=== PATIENT | male | born 1955 | race Caucasian/White ===

== ENCOUNTER 2022-02-07 14:28 | Inpatient (IN) | payer MEDICARE, OTHER ==
[~2022-02-07] VITALS: Ht 165.1 cm; Wt 72.6 kg
[2022-02-07] MEDS ORDERED: METO-295 PO (16:09)
[2022-02-07] MEDS ORDERED: PANT20TA2 PO (16:09)
[2022-02-07] MEDS ORDERED: MAGN400O6 PO (16:09)
[2022-02-07] MEDS ORDERED: LEVE500T9 PO (16:09)
[2022-02-07] MEDS ORDERED: LACT10SO3 PO (16:09)
[2022-02-07] MEDS ORDERED: ACET-2154 PO (16:09)
[2022-02-07] MEDS ORDERED: CHOL100062 PO (16:09)
[2022-02-07] MEDS ORDERED: BISA10SU61 RC (16:09)
[2022-02-07] MEDS ORDERED: CLON0.1T PO (16:09)
[2022-02-07] MEDS ORDERED: BLOO-697 IN (16:09)
[2022-02-07] MEDS ORDERED: GLUC1AUT IM (16:09)
[2022-02-07] MEDS ORDERED: LISI20TA PO (16:09)
[2022-02-07] MEDS ORDERED: LEVO100T PO (16:09)
[2022-02-07] MEDS ORDERED: MULT-594 PO (16:09)
[2022-02-07 16:15] LABS: HEMATOCRIT 45.1 % (36.7-47.1); MEAN CORPUSCULAR HEMOGLOBIN 30.8 uug (23.8-33.4); MEAN CORPUSCULAR VOLUME 90.8 fL (73.0-96.2); PLATELET COUNT (AUTO) 306 K/uL (152-348)
[2022-02-07] MEDS ORDERED: LORAZEPAM 2 MG/1 ML VIAL ONE (16:17)
[2022-02-07 16:20] LABS: CREATININE 0.9 mg/dL (0.6-1.3); POTASSIUM 3.7 mmol/L (3.5-5.1)
[2022-02-07] MEDS ORDERED: LORAZEPAM 0.5 MG TABLET PO ONE (16:30)
--- NOTE | 2022-02-07 16:40 | NUR ---
Pt came in from shelter per report. Pt was agitated and not like any female staff. Tried irrigating the current little with no success. Changed suprapubic cath with Fr. 16 and attached to a new bedside drainage bag. Urine sample sent to lab.
--- NOTE | 2022-02-07 17:06 | NUR ---
pt put out only 100 ml. made aware.
[2022-02-07 17:21] LABS: *BILIRUBIN,URIN NEGATIVE (NEGATIVE); *BLOOD, URINE 3+ (NEGATIVE); *CLARITY,URINE CLOUDY (CLEAR); *COLOR,URINE RED (YELLOW); *KETONES,URINE NEGATIVE (NEGATIVE); *UROBILINOGEN,URINE 0.2 E.U./dl (NORMAL); LEUKOCYTE ESTERASE ,URINE 3+ (NEGATIVE); NITRITE, URINE NEGATIVE (NEGATIVE); PH,URINE 6.5 (5.0-8.0); UGLUCOSE NEGATIVE (NEGATIVE)
[2022-02-07 17:29] LABS: BACTERIA,URINE MODERATE /HPF (NONE SEEN); RBC,URINE 80-100 /HPF (0-3); WBC,URINE 50-80 /HPF (0-3)
[2022-02-07 17:30] LABS: SQUAMOUS EPITHELIAL CELL,UR FEW /HPF (NONE SEEN)
[2022-02-07] MEDS ORDERED: CEFTRIAXONE 1 G in IV DEXTROSE 5% 50 ML IV ONE (17:45)
[2022-02-07] MEDS ORDERED: IV NS 1000 ML 1,000 ML IV ONE (18:00)
[2022-02-07] MEDS ORDERED: CLONIDINE HCL 0.1 MG TABLET PO PRN (18:00)
[2022-02-07] MEDS ORDERED: MORPHINE SULFATE 2 MG/1 ML DISP.SYRIN IV PRN (18:00)
[2022-02-07] MEDS ORDERED: hydrALAZINE HCL 20 MG/1 ML VIAL IV PRN (18:00)
[2022-02-07] MEDS ORDERED: MAGNESIUM HYDROXIDE 30 ML LIQUID UDC PO PRN (18:00)
[2022-02-07] MEDS ORDERED: ACETAMINOPHEN 325 MG TABLET PO PRN (18:00)
[2022-02-07] MEDS ORDERED: ONDANSETRON 4 MG/2 ML VIAL IV PRN (18:00)
[2022-02-07] MEDS ORDERED: INSULIN REGULAR, HUMAN 300 UNITS/3 ML VIAL SQ PRN (19:15)
[2022-02-07] MEDS ORDERED: DEXTROSE 50% 50 ML DISP.SYRIN IV PRN (19:15)
[2022-02-07] MEDS: METOCLOPRAMIDE HCL 5 MG TABLET PO SCH (21:00)
[2022-02-07] MEDS: BLOOD SUGAR DIAGNOSTIC 1 EACH STRIP VI SCH (21:00)
[2022-02-07] MEDS ORDERED: MEROPENEM 1 G in IV NORMAL SALINE 100 ML IV ONE (21:00)
[2022-02-08] MEDS: MEROPENEM 1 G in IV NORMAL SALINE 100 ML IV SCH ×3 (05:00→20:22)
[2022-02-08] MEDS: LEVOTHYROXINE SODIUM 100 MCG TABLET PO SCH (06:47)
[2022-02-08] MEDS: PANTOPRAZOLE SODIUM 40 MG TABLET.DR PO SCH (06:47)
--- NOTE | 2022-02-08 08:02 | NUR ---
SHIFT NOTE: PT IS ALERT WITH PERIOD OF CONFUSION BECAME COMBATIVE ATTEMPTING TO TAKE BLOOD SUGAR CALL DR FRYE HE OKAY SOFT WRIST RESTRAINTS PT WILL NOT LET YOU GIVE MEDICATION IV FLUIDS. PT HAS DX INSERTION OF CATHETHER SUPRA PUBIC. WHICH WAS DONE 02/07/22 PT HAS PT HX OF DM, HYPOTHYROIDISM,EPILEPSY,DIABETIC NEUROPATHY AND WILL ENDORSE TO AM NURSE. WILL CONTINUE TO MONITOR FOR SAFETY THROUGHOUT THE SHIFT.
[2022-02-08] MEDS: BLOOD SUGAR DIAGNOSTIC 1 EACH STRIP VI SCH ×4 (08:27→20:23)
[2022-02-08] MEDS: METOCLOPRAMIDE HCL 5 MG TABLET PO SCH ×2 (08:41→20:23)
[2022-02-08] MEDS: LISINOPRIL 20 MG TABLET PO SCH (08:41)
[2022-02-08] MEDS: DOCUSATE SODIUM 100 MG CAPSULE PO SCH ×2 (08:41→17:00)
[2022-02-08] MEDS: CHOLECALCIFEROL 1,000 UNIT TABLET PO SCH (08:41)
[2022-02-08] MEDS ORDERED: BISACODYL 10 MG SUPP.RECT RC PRN (09:00)
--- NOTE | 2022-02-08 09:00 | NUR ---
RECEIVED PT ON BED; SLEEPING CALMLY; NO ACUTE DISTRESS NOTED; NO SOB NOR PAIN NOTED; PT ON RESTRAIN PER NOC SHIFT RN PT IS AGITATED AND CONFUSED; PT HAVE RIGHT SIDED WEAKNESS. ON ROOM AIR SATURATING 97-98%; PT ATE 100% OF BREAKFAST AND TOOK PO MEDS ONLY; PT IS REFUSING IV MEDS. NOTIFIED.
[2022-02-08 12:00] VITALS: BP 120/91
[2022-02-08 16:00] VITALS: BP 114/61
[2022-02-08] MEDS: INSULIN REGULAR, HUMAN 300 UNIT/3 ML VIAL SQ PRN (17:34)
--- NOTE | 2022-02-08 18:54 | NUR ---
pt is combative when tending care. applied mitten restrain and soft wrist restraint. merrem 1st dose started. will endorsed to oncoming shift
[2022-02-08 20:00] VITALS: BP 103/46
[2022-02-08] MEDS: levETIRAcetam 500 MG TABLET PO SCH (20:21)
[2022-02-08] MEDS ORDERED: levETIRAcetam 500 MG TABLET PO SCH (21:00)
[2022-02-09 04:00] VITALS: BP 122/59
[2022-02-09] MEDS: MEROPENEM 1 G in IV NORMAL SALINE 100 ML IV SCH ×4 (05:00→21:45)
[2022-02-09] MEDS: LEVOTHYROXINE SODIUM 100 MCG TABLET PO SCH (06:27)
[2022-02-09] MEDS: BLOOD SUGAR DIAGNOSTIC 1 EACH STRIP VI SCH ×4 (06:27→21:00)
[2022-02-09] MEDS: PANTOPRAZOLE SODIUM 40 MG TABLET.DR PO SCH (06:27)
--- NOTE | 2022-02-09 08:07 | NUR ---
SHIFT NOTE; RECEIVED ALERT AND ORIENTED WHILE FAMILY MEM[facility]ERS WAS WITH PATIENT PT WAS GIVEN ANTIBIOTIC AND MEDICATION AT HS WHILE WAS HERE AFTERWARDS REFUSED MEDICATION, BLOOD DRAW, AND AM BLOOD SUGAR. WILL ENDORSE TO AM NURSE FALL AND SAFETY MAINTAINED NO SIGNS OF DISTRESS NOTED.
[2022-02-09] MEDS: CHOLECALCIFEROL 1,000 UNIT TABLET PO SCH (08:47)
[2022-02-09] MEDS: METOCLOPRAMIDE HCL 5 MG TABLET PO SCH ×2 (08:47→21:37)
[2022-02-09] MEDS: LISINOPRIL 20 MG TABLET PO SCH (08:47)
[2022-02-09] MEDS: DOCUSATE SODIUM 100 MG CAPSULE PO SCH ×2 (08:48→17:00)
[2022-02-09] MEDS: levETIRAcetam 500 MG TABLET PO SCH ×2 (08:48→17:00)
--- NOTE | 2022-02-09 11:30 | NUR ---
HOSTILE AND COMBATIVE. REFUSING ALL TREATMENTS AND MOST MEDS TODAY.
[2022-02-09 12:22] VITALS: BP 134/58
[2022-02-09 16:12] VITALS: BP 156/73
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
[2022-02-09] MEDS: LORAZEPAM 2 MG/1 ML VIAL IV PRN ×2 (16:29→21:45)
[2022-02-09 20:00] VITALS: BP 114/48
[2022-02-09] MEDS: INSULIN REGULAR, HUMAN 300 UNIT/3 ML VIAL SQ PRN (22:03)
[2022-02-10 04:00] VITALS: BP 136/72
[2022-02-10] MEDS: MEROPENEM 1 G in IV NORMAL SALINE 100 ML IV SCH ×2 (05:00→13:00)
[2022-02-10] MEDS: BLOOD SUGAR DIAGNOSTIC 1 EACH STRIP VI SCH ×2 (06:43→11:30)
[2022-02-10] MEDS: LEVOTHYROXINE SODIUM 100 MCG TABLET PO SCH (07:00)
[2022-02-10] MEDS: PANTOPRAZOLE SODIUM 40 MG TABLET.DR PO SCH (07:00)
--- NOTE | 2022-02-10 07:06 | NUR ---
pt am blood sugar is 118 and no signs of diabetic reaction noted but refused other medication and pulled out iv called Dr Melvin no response.
[2022-02-10 07:54] LABS: HEMATOCRIT 39.5 % (36.7-47.1); MEAN CORPUSCULAR HEMOGLOBIN 31.3 uug (23.8-33.4); MEAN CORPUSCULAR VOLUME 91.4 fL (73.0-96.2); PLATELET COUNT (AUTO) 291 K/uL (152-348)
[2022-02-10 07:59] LABS: PHOSPHOROUS 2.2 mg/dL (2.5-4.9); POTASSIUM 4.2 mmol/L (3.5-5.1); TOTAL PROTEIN, SERUM 7.2 g/dL (6.4-8.2)
[2022-02-10] MEDS: levETIRAcetam 500 MG TABLET PO SCH (09:00)
[2022-02-10] MEDS: DOCUSATE SODIUM 100 MG CAPSULE PO SCH (09:00)
[2022-02-10] MEDS: LISINOPRIL 20 MG TABLET PO SCH (09:00)
[2022-02-10] MEDS: METOCLOPRAMIDE HCL 5 MG TABLET PO SCH (09:00)
[2022-02-10] MEDS: CHOLECALCIFEROL 1,000 UNIT TABLET PO SCH (09:00)
--- NOTE | 2022-02-10 10:00 | NUR ---
Angry and hostile. Refusing meds and treatment.
[2022-02-10 12:00] VITALS: BP 110/59
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
--- NOTE | 2022-02-10 14:05 | NUR ---
DISCHARGED VIA [facility] TO AMBULANCE ATTENDANTS.
--- NOTE | 2022-02-10 14:16 | NUR ---
REPORT CALLED TO SINDI HENNESSY.
== END 2022-02-10 14:05 | DRG 699 ==
LOC: ER 14:28 → MEDSURG3 19:19
PROVIDERS: ADMIT Internal Medicine; ATTEND Internal Medicine
DX: T83.090A Other mechanical complication of cystostomy catheter, initial encounter (principal); N39.0 Urinary tract infection, site not specified; R31.9 Hematuria, unspecified; E03.9 Hypothyroidism, unspecified; F03.90 Unspecified dementia, unspecified severity, without behavioral disturbance, psychotic disturbance, mood disturbance, and anxiety; G40.909 Epilepsy, unspecified, not intractable, without status epilepticus; I10 Essential (primary) hypertension; J44.9 Chronic obstructive pulmonary disease, unspecified; R62.7 Adult failure to thrive; Z85.038 Personal history of other malignant neoplasm of large intestine; Z87.440 Personal history of urinary (tract) infections; Z93.3 Colostomy status; N13.9 Obstructive and reflux uropathy, unspecified; Z68.26 Body mass index [BMI] 26.0-26.9, adult; Y84.8 Other medical procedures as the cause of abnormal reaction of the patient, or of later complication, without mention of misadventure at the time of the procedure; E11.9 Type 2 diabetes mellitus without complications; Y73.8 Miscellaneous gastroenterology and urology devices associated with adverse incidents, not elsewhere classified; Y92.129 Unspecified place in nursing home as the place of occurrence of the external cause
CPT/HCPCS: 36415; 51702; 83735; 84100; 85025; 87086; A4663; G0378; J1815; J2060; J2185; J8597

== ENCOUNTER 2023-10-12 13:47 | Inpatient (IN) | payer MEDICARE, OTHER ==
[~2023-10-12] VITALS: Ht 172.7 cm; Wt 102.1 kg
[~2023-10-12 13:47] MED LIST: ACET-2154 PO; BISA10SU61 RC; CHOL100062 PO; CLON0.1T PO; LEVE500T9 PO; LEVO100T PO; LISI20TA PO; MULT-594 PO; PANT20TA2 PO
[2023-10-12] MEDS ORDERED: DOCU100C36 PO (14:12)
[2023-10-12] MEDS ORDERED: CYAN100T44 PO (14:12)
[2023-10-12] MEDS ORDERED: CHOL10005 PO (14:12)
[2023-10-12] MEDS ORDERED: POLY250017 PO (14:12)
[2023-10-12 14:34] LABS: BASOPHILS # (AUTO) 0.1 K/UL (0.0-0.2); EOSINOPHILS # (AUTO) 0.2 K/uL (0.0-0.7); EOSINOPHILS % (AUTO) 2.4 % (0.0-7.0); HEMATOCRIT 41.7 % (36.7-47.1); HEMOGLOBIN 14.4 g/dL (12.5-16.3); LYMPHOCYTES # (AUTO) 1.4 K/uL (0.8-4.8); LYMPHOCYTES % (AUTO) 14.9 % (20.5-51.5); MEAN CORPUSCULAR HEMOGLOBIN 34.7 uug (23.8-33.4); MEAN CORPUSCULAR HGB CONC 34 g/dL (32.5-36.3); MEAN CORPUSCULAR VOLUME 100.7 fL (73.0-96.2); NEUTROPHILS # (AUTO) 6.9 K/uL (1.8-8.9); NEUTROPHILS % (AUTO) 71.7 % (38.5-71.5); PLATELET COUNT (AUTO) 413 K/uL (152-348); RED BLOOD CELL COUNT(AUTO) 4.14 MIL/uL (4.06-5.63); RED CELL DISTRIBUTION WIDTH 17.4 % (12.1-16.2); WHITE BLOOD COUNT (AUTO) 9.6 K/uL (3.6-10.2)
[2023-10-12 14:49] LABS: DIFFERENTIAL COMMENT 1
[2023-10-12 14:52] LABS: CALCIUM 8.7 mg/dL (8.5-10.1); CREATININE 0.8 mg/dL (0.6-1.3); POTASSIUM 3.8 mmol/L (3.5-5.1)
[2023-10-12 14:58] LABS: ALBUMIN 3.1 g/dL (3.4-5.0); BILIRUBIN,DIRECT 0.2 mg/dL (0.0-0.2); C-REACTIVE PROTEIN 2.08 mg/dL (0.00-0.30); TOTAL PROTEIN, SERUM 8.2 g/dL (6.4-8.2)
[2023-10-12 15:14] LABS: *BILIRUBIN,URIN NEGATIVE (NEGATIVE); *BLOOD, URINE NEGATIVE (NEGATIVE); *CLARITY,URINE CLEAR (CLEAR); *COLOR,URINE YELLOW (YELLOW); *KETONES,URINE NEGATIVE (NEGATIVE); *PROTEIN,URINE NEGATIVE (NEGATIVE); *UROBILINOGEN,URINE 0.2 E.U./dl (NORMAL); LEUKOCYTE ESTERASE ,URINE 1+ (NEGATIVE); NITRITE, URINE NEGATIVE (NEGATIVE); UGLUCOSE NEGATIVE (NEGATIVE)
[2023-10-12 15:33] LABS: BACTERIA,URINE FEW /HPF (NONE SEEN); RBC,URINE NONE SEEN /HPF (0-3); SQUAMOUS EPITHELIAL CELL,UR FEW /HPF (NONE SEEN)
[2023-10-12] MEDS: CIPROFLOXACIN IV 400 MG in PREMIXED 1 EACH IV STA (15:46)
[2023-10-12] MEDS ORDERED: CLONIDINE HCL 0.2 MG TABLET ONE (17:04)
[2023-10-12] MEDS: CLONIDINE HCL 0.2 MG TABLET PO ONE (17:08)
[2023-10-12 18:44] VITALS: BP 177/89; TEMP 97.9; O2SAT 97
[2023-10-12] MEDS ORDERED: ACETAMINOPHEN 325 MG TABLET-SA PATIENTS-PAIN ONLY PO PRN (19:15)
[2023-10-12] MEDS ORDERED: CLONIDINE HCL 0.1 MG TABLET PO PRN (19:15)
[2023-10-12] MEDS ORDERED: TEMAZEPAM 15 MG CAPSULE PO PRN (19:30)
[2023-10-12] MEDS ORDERED: MEROPENEM 500 MG in IV NORMAL SALINE 50 ML IV SCH (19:30)
[2023-10-12] MEDS ORDERED: LORAZEPAM 2 MG/1 ML VIAL IV PRN (19:30)
[2023-10-12] MEDS ORDERED: ONDANSETRON 4 MG/2 ML VIAL IV PRN (19:30)
[2023-10-12] MEDS: levETIRAcetam 500 MG TABLET PO SCH (20:40)
[2023-10-12] MEDS: METOPROLOL TARTRATE 25 MG TABLET PO SCH (20:40)
[2023-10-12] MEDS ORDERED: MEROPENEM 1 G in IV NORMAL SALINE 100 ML IV SCH ×2 (21:00→22:00)
[2023-10-12 21:03] VITALS: BP 114/67; TEMP 98.7; O2SAT 96
[2023-10-12] MEDS ORDERED: MEROPENEM 1GM/NS 100ML IVPB **ER PYXIS ONLY IV ONE (21:37)
[2023-10-12] MEDS: MEROPENEM 1 G in IV NORMAL SALINE 100 ML IV SCH (21:50)
[2023-10-13] MEDS ORDERED: ACETAMINOPHEN 325 MG TABLET PO PRN (05:30)
[2023-10-13 05:41] VITALS: BP 123/66; TEMP 98; O2SAT 98
[2023-10-13] MEDS: LEVOTHYROXINE SODIUM 100 MCG TABLET PO SCH (06:11)
[2023-10-13] MEDS: PANTOPRAZOLE SODIUM 40 MG TABLET.DR PO SCH (06:11)
[2023-10-13] MEDS ORDERED: BISACODYL 10 MG SUPP.RECT RC PRN (06:45)
[2023-10-13] MEDS ORDERED: CYANOCOBALAMIN 100 MCG TABLET PO SCH (09:00)
[2023-10-13] MEDS ORDERED: CHOLECALCIFEROL 1,000 UNIT TABLET PO SCH (09:00)
[2023-10-13] MEDS: MIRALAX 17 GM POWD.PACK PO SCH (09:00)
[2023-10-13] MEDS: LISINOPRIL 20 MG TABLET PO SCH (09:00)
[2023-10-13] MEDS: DOCUSATE SODIUM 100 MG CAPSULE PO SCH (09:00)
[2023-10-13] MEDS: MULTIVITAMINS,THERAPEUTIC TABLET PO SCH (09:00)
[2023-10-13] MEDS ORDERED: BISACODYL 10 MG SUPP.RECT RC SCH ×2 (09:00)
[2023-10-13 11:49] VITALS: BP 114/45; TEMP 97.5; O2SAT 96
[2023-10-13] MEDS: MEROPENEM 0.5 G in IV NORMAL SALINE 50 ML IV SCH (13:11)
[2023-10-13] MEDS ORDERED: LORAZEPAM 0.5 MG TABLET PO PRN (13:15)
[2023-10-13] MEDS ORDERED: MEROPENEM 1 G in IV NORMAL SALINE 100 ML IV SCH (14:00)
[2023-10-13 16:06] VITALS: BP 109/52; TEMP 98.1; O2SAT 94
[2023-10-13] MEDS: CHOLECALCIFEROL 1,000 UNIT TABLET PO SCH (16:47)
[2023-10-13 20:56] VITALS: BP 127/64; TEMP 98.2
[2023-10-13] MEDS ORDERED: NEOMY/BACITRAC/POLYMI OINT 28.35 GM TUBE TOP SCH (21:00)
[2023-10-14 05:27] VITALS: BP 128/68; TEMP 98.3
[2023-10-14 08:00] VITALS: BP 141/73; TEMP 97.6; O2SAT 98
[2023-10-14 12:00] VITALS: BP 117/72; TEMP 98.2; O2SAT 97
[2023-10-14 16:00] VITALS: BP 129/59; TEMP 97.6; O2SAT 97
[2023-10-14 19:45] VITALS: BP 106/55; TEMP 97.9; O2SAT 97
[2023-10-15 07:39] LABS: BASOPHILS # (AUTO) 0.1 K/UL (0.0-0.2); BASOPHILS % (AUTO) 0.6 % (0.0-2.0); EOSINOPHILS # (AUTO) 0.3 K/uL (0.0-0.7); HEMATOCRIT 39.5 % (36.7-47.1); LYMPHOCYTES # (AUTO) 2.1 K/uL (0.8-4.8); LYMPHOCYTES % (AUTO) 21.5 % (20.5-51.5); MEAN CORPUSCULAR HEMOGLOBIN 35.1 uug (23.8-33.4); MEAN CORPUSCULAR HGB CONC 35 g/dL (32.5-36.3); MEAN CORPUSCULAR VOLUME 99.5 fL (73.0-96.2); MONOCYTES # (AUTO) 1.2 K/uL (0.1-1.30); MONOCYTES % (AUTO) 11.8 % (0.0-11.0); NEUTROPHILS # (AUTO) 6.2 K/uL (1.8-8.9); NEUTROPHILS % (AUTO) 63.1 % (38.5-71.5); PLATELET COUNT (AUTO) 336 K/uL (152-348); RED BLOOD CELL COUNT(AUTO) 3.97 MIL/uL (4.06-5.63); RED CELL DISTRIBUTION WIDTH 17.9 % (12.1-16.2); WHITE BLOOD COUNT (AUTO) 9.8 K/uL (3.6-10.2)
[2023-10-15 07:43] LABS: DIFFERENTIAL COMMENT 1
[2023-10-15 07:48] VITALS: BP 133/73; TEMP 98
[2023-10-15 08:08] LABS: IRON, SERUM 35 ug/dL (50-175)
[2023-10-15 08:16] LABS: ALBUMIN 2.9 g/dL (3.4-5.0); BILIRUBIN,TOTAL 1.5 mg/dL (0.2-1.0); CALCIUM 8.5 mg/dL (8.5-10.1); MAGNESIUM 2.2 mg/dL (1.8-2.4); POTASSIUM 4.5 mmol/L (3.5-5.1); TOTAL PROTEIN, SERUM 7.8 g/dL (6.4-8.2)
[2023-10-15] MEDS: CYANOCOBALAMIN 1000 MCG/ML VIAL IM SCH (10:41)
[2023-10-15 12:05] VITALS: BP 113/60; TEMP 97.2; O2SAT 98
[2023-10-15 14:49] VITALS: BP 109/54; TEMP 97.5; O2SAT 96
[2023-10-15] MEDS ORDERED: TEMA15CA PO (15:58)
[2023-10-15] MEDS ORDERED: LISI10TA29 PO (15:58)
[2023-10-15] MEDS ORDERED: METO25TA6 PO (15:58)
[2023-10-15] MEDS ORDERED: CYAN10006 IM (15:58)
[2023-10-15] MEDS ORDERED: PANT40TA49 PO (15:58)
[2023-10-16 08:00] VITALS: BP 118/77; TEMP 97.2; O2SAT 97
== END 2023-10-15 17:00 | DRG 699 ==
LOC: ER 13:47 → MEDSURG3 17:53
PROVIDERS: ADMIT Internal Medicine; ATTEND Internal Medicine
DX: T83.518A Infection and inflammatory reaction due to other urinary catheter, initial encounter (principal); D68.59 Other primary thrombophilia; N39.0 Urinary tract infection, site not specified; I69.351 Hemiplegia and hemiparesis following cerebral infarction affecting right dominant side; G93.49 Other encephalopathy; R17 Unspecified jaundice; G40.909 Epilepsy, unspecified, not intractable, without status epilepticus; J44.9 Chronic obstructive pulmonary disease, unspecified; E11.9 Type 2 diabetes mellitus without complications; Z93.3 Colostomy status; I10 Essential (primary) hypertension; Z74.09 Other reduced mobility; E66.9 Obesity, unspecified; Z68.34 Body mass index [BMI] 34.0-34.9, adult; E61.1 Iron deficiency; E53.8 Deficiency of other specified B group vitamins; E03.9 Hypothyroidism, unspecified; D75.89 Other specified diseases of blood and blood-forming organs; Z85.038 Personal history of other malignant neoplasm of large intestine; Z91.199 Patient's noncompliance with other medical treatment and regimen due to unspecified reason; Z88.1 Allergy status to other antibiotic agents; Z91.041 Radiographic dye allergy status; N13.9 Obstructive and reflux uropathy, unspecified
CPT/HCPCS: 36415; 71045; 82652; 83550; 83605; 83735; 84100; 84443; 85025; 86140; 87040; A4663; G0378; J0744; J2185; J3420

== ENCOUNTER 2024-05-17 12:59 | Emergency (ER) | payer MEDICARE, OTHER ==
[~2024-05-17] VITALS: Ht 172.7 cm; Wt 86.2 kg
[~2024-05-17 12:59] MED LIST changes: +CYAN10006 IM; +CYAN100T44 PO; +DOCU100C36 PO; +LISI10TA29 PO; -LISI20TA PO; +METO25TA6 PO; -PANT20TA2 PO; +PANT40TA49 PO; +POLY250017 PO; +TEMA15CA PO
[2024-05-17 15:34] VITALS: BP 131/61; O2SAT 97
== END 2024-05-17 15:36 | disposition home or self-care (01) ==
LOC: ER 12:59
DX: T83.010A Breakdown (mechanical) of cystostomy catheter, initial encounter (principal); D68.59 Other primary thrombophilia; E03.9 Hypothyroidism, unspecified; E11.9 Type 2 diabetes mellitus without complications; E53.8 Deficiency of other specified B group vitamins; E61.1 Iron deficiency; G40.909 Epilepsy, unspecified, not intractable, without status epilepticus; G93.49 Other encephalopathy; I10 Essential (primary) hypertension; J44.9 Chronic obstructive pulmonary disease, unspecified; Z68.28 Body mass index [BMI] 28.0-28.9, adult; Z79.890 Hormone replacement therapy; Z79.899 Other long term (current) drug therapy; Z87.440 Personal history of urinary (tract) infections; Z88.1 Allergy status to other antibiotic agents; Z88.8 Allergy status to other drugs, medicaments and biological substances; Z91.041 Radiographic dye allergy status
CPT/HCPCS: A4606; A4663

== ENCOUNTER 2024-08-07 13:25 | Inpatient (IN) | payer MEDICARE, OTHER ==
[~2024-08-07] VITALS: Ht 170.2 cm; Wt 95.3 kg
[2024-08-07 14:05] LABS: BASOPHILS # (AUTO) 0.1 K/UL (0.0-0.2); BASOPHILS % (AUTO) 0.5 % (0.0-2.0); HEMATOCRIT 41.3 % (36.7-47.1); HEMOGLOBIN 13.5 g/dL (12.5-16.3); LYMPHOCYTES # (AUTO) 1.7 K/uL (0.8-4.8); LYMPHOCYTES % (AUTO) 6.9 % (20.5-51.5); MEAN CORPUSCULAR HGB CONC 33 g/dL (32.5-36.3); MEAN CORPUSCULAR VOLUME 85.9 fL (73.0-96.2); MONOCYTES # (AUTO) 2.3 K/uL (0.1-1.30); MONOCYTES % (AUTO) 9.3 % (0.0-11.0); NEUTROPHILS # (AUTO) 20.9 K/uL (1.8-8.9); NEUTROPHILS % (AUTO) 83.3 % (38.5-71.5); PLATELET COUNT (AUTO) 328 K/uL (152-348); RED BLOOD CELL COUNT(AUTO) 4.81 MIL/uL (4.06-5.63); WHITE BLOOD COUNT (AUTO) 25.1 K/uL (3.6-10.2)
[2024-08-07] MEDS ORDERED: LEVE100S PO (14:05)
[2024-08-07] MEDS ORDERED: ACID1TAB4 PO (14:05)
[2024-08-07 14:06] LABS: DIFFERENTIAL COMMENT 1
[2024-08-07] MEDS: IV NORMAL SALINE 1000 ML BAG IV ONE (14:10)
[2024-08-07] MEDS: MEROPENEM 1 G in IV NORMAL SALINE 100 ML IV ONE (14:10)
[2024-08-07] MEDS ORDERED: MEROPENEM 1GM/NS 100ML IVPB **ER PYXIS ONLY IV ONE (14:10)
[2024-08-07 14:18] LABS: CARBON DIOXIDE 25 mmol/L (21-32); CHLORIDE 107 mmol/L (98-107); CREATININE 2.1 mg/dL (0.6-1.3); GLUCOSE 214 mg/dL (74-106); POTASSIUM 3.4 mmol/L (3.5-5.1); SODIUM SERUM 144 mmol/L (136-145); UREA NITROGEN, BLOOD 23 mg/dL (7-18)
[2024-08-07 14:31] LABS: ALANINE AMINOTRANSFERASE 18 U/L (16-63); ALKALINE PHOSPHATASE 97 U/L (50-136); ASPARTATE AMINOTRANSFERASE 23 U/L (15-37); BILIRUBIN,DIRECT 0.4 mg/dL (0.0-0.2); BILIRUBIN,TOTAL 1.7 mg/dL (0.2-1.0); NT-PRO BNP 2519 pg/mL (0-125); TOTAL PROTEIN, SERUM 7.9 g/dL (6.4-8.2)
[2024-08-07 14:38] LABS: LACTIC ACID 4.6 mmol/L (0.4-2.0)
[2024-08-07 14:45] LABS: *BILIRUBIN,URIN 2+ (NEGATIVE); *BLOOD, URINE 2+ (NEGATIVE); *COLOR,URINE YELLOW (YELLOW); *KETONES,URINE 1+ (NEGATIVE); *PROTEIN,URINE 3+ (NEGATIVE); LEUKOCYTE ESTERASE ,URINE TRACE (NEGATIVE); NITRITE, URINE NEGATIVE (NEGATIVE); PH,URINE 5.5 (5.0-8.0); UGLUCOSE NEGATIVE (NEGATIVE)
[2024-08-07 15:01] LABS: *CLARITY,URINE CLOUDY (CLEAR)
[2024-08-07 15:05] LABS: BACTERIA,URINE MODERATE /HPF (NONE SEEN); SQUAMOUS EPITHELIAL CELL,UR MODERATE /HPF (NONE SEEN); URINE AMORPHOUS URATE MODERATE /HPF; WBC,URINE 20-50 /HPF (0-3)
[2024-08-07] MEDS ORDERED: AMIN30LI2 PO (17:48)
[2024-08-07] MEDS ORDERED: CLONIDINE HCL 0.1 MG TABLET PO PRN (18:45)
[2024-08-07 19:00] VITALS: BP 106/60; TEMP 99.3; O2SAT 96
[2024-08-07] MEDS ORDERED: REMEDY ESSENTIAL ZINC PASTE 113 GM TP PRN (19:00)
[2024-08-07] MEDS: IV LACTATED RINGERS SOLUTION 1,000 ML IV SCH (19:00)
[2024-08-07] MEDS ORDERED: ONDANSETRON 4 MG/2 ML VIAL IV PRN (19:00)
[2024-08-07] MEDS ORDERED: ACETAMINOPHEN 325 MG TABLET PO PRN (19:00)
[2024-08-07] MEDS: MEROPENEM 500 MG in IV NORMAL SALINE 50 ML IV SCH (20:35)
[2024-08-07] MEDS: ACIDOPHILUS/BULGARICUS CHEW TAB PO SCH (20:51)
[2024-08-07] MEDS: ENOXAPARIN SODIUM 40 MG/0.4 ML DISP.SYRIN SQ SCH (20:51)
[2024-08-07] MEDS: METOPROLOL TARTRATE 25 MG TABLET PO SCH (20:51)
[2024-08-07] MEDS: DOXYCYCLINE HYCLATE IV 100 MG in IV DEXTROSE 5% 100 ML IV SCH (21:45)
[2024-08-08] VITALS: BP 122/62; TEMP 98.9; O2SAT 97
[2024-08-08 04:00] VITALS: BP 113/59; TEMP 98.7; O2SAT 95
[2024-08-08] MEDS: PANTOPRAZOLE SODIUM 40 MG TABLET.DR PO SCH (07:00)
[2024-08-08] MEDS: LEVOTHYROXINE SODIUM 100 MCG TABLET PO SCH (07:00)
[2024-08-08 08:08] VITALS: BP 115/55; TEMP 98.1; O2SAT 95
[2024-08-08] MEDS: CHOLECALCIFEROL 1,000 UNIT TABLET PO SCH (08:16)
[2024-08-08] MEDS: levETIRAcetam 500 MG/5 ML LIQUID UDC PO SCH (08:24)
[2024-08-08 11:54] VITALS: BP 138/76; TEMP 97; O2SAT 96
[2024-08-08 15:17] LABS: BASOPHILS # (AUTO) 0.1 K/UL (0.0-0.2); EOSINOPHILS # (AUTO) 0.1 K/uL (0.0-0.7); EOSINOPHILS % (AUTO) 0.6 % (0.0-7.0); HEMATOCRIT 30.4 % (36.7-47.1); HEMOGLOBIN 10.2 g/dL (12.5-16.3); LYMPHOCYTES # (AUTO) 2.3 K/uL (0.8-4.8); LYMPHOCYTES % (AUTO) 17.4 % (20.5-51.5); MEAN CORPUSCULAR HEMOGLOBIN 28.5 uug (23.8-33.4); MEAN CORPUSCULAR HGB CONC 34 g/dL (32.5-36.3); MEAN CORPUSCULAR VOLUME 85.2 fL (73.0-96.2); MONOCYTES # (AUTO) 1.6 K/uL (0.1-1.30); MONOCYTES % (AUTO) 12.6 % (0.0-11.0); NEUTROPHILS # (AUTO) 8.9 K/uL (1.8-8.9); NEUTROPHILS % (AUTO) 68.4 % (38.5-71.5); PLATELET COUNT (AUTO) 245 K/uL (152-348); RED BLOOD CELL COUNT(AUTO) 3.57 MIL/uL (4.06-5.63); RED CELL DISTRIBUTION WIDTH 15.6 % (12.1-16.2)
[2024-08-08 15:21] LABS: DIFFERENTIAL COMMENT 1
[2024-08-08 15:31] LABS: CALCIUM 7.7 mg/dL (8.5-10.1); CREATININE 0.9 mg/dL (0.6-1.3); MAGNESIUM 1.8 mg/dL (1.8-2.4); PHOSPHOROUS 2.1 mg/dL (2.5-4.9); POTASSIUM 3.4 mmol/L (3.5-5.1)
[2024-08-08 15:37] VITALS: BP 105/69; TEMP 98.1; O2SAT 97
[2024-08-08 15:40] LABS: THYROID STIMULATING HORMONE 4.399 mIU/mL (0.358-3.740)
[2024-08-08 20:17] VITALS: BP 136/71; TEMP 100.1; O2SAT 98
[2024-08-09 00:58] VITALS: BP 134/72; TEMP 94.8; O2SAT 98
[2024-08-09 06:24] VITALS: BP 133/73; TEMP 98; O2SAT 95
[2024-08-09 07:30] VITALS: BP 147/68; TEMP 98.4; O2SAT 95
[2024-08-09] MEDS ORDERED: SULF1TAB48 PO (15:20)
[2024-08-09] MEDS ORDERED: DOXY-326 PO (15:20)
[2024-08-09 15:52] VITALS: BP 119/43; TEMP 98.2; O2SAT 94
[2024-08-09] MEDS: GLUCERNA SHAKE 237 ML CAN PO SCH (17:00)
[2024-08-09] MEDS: MEROPENEM 500 MG in IV NORMAL SALINE 50 ML IV SCH (19:04)
[2024-08-09 19:10] VITALS: BP 127/64; TEMP 99.1; O2SAT 97
[2024-08-09] MEDS: levETIRAcetam 500 MG TABLET PO SCH (20:22)
[2024-08-10 07:01] VITALS: BP 123/60; TEMP 99; O2SAT 95
[2024-08-10 11:14] VITALS: BP 128/72; TEMP 98.4; O2SAT 96
[2024-08-10 14:33] LABS: BASOPHILS # (AUTO) 0.1 K/UL (0.0-0.2); BASOPHILS % (AUTO) 0.9 % (0.0-2.0); EOSINOPHILS % (AUTO) 0.2 % (0.0-7.0); HEMATOCRIT 30.7 % (36.7-47.1); HEMOGLOBIN 10.6 g/dL (12.5-16.3); LYMPHOCYTES # (AUTO) 0.9 K/uL (0.8-4.8); LYMPHOCYTES % (AUTO) 8.6 % (20.5-51.5); MEAN CORPUSCULAR HEMOGLOBIN 29.5 uug (23.8-33.4); MEAN CORPUSCULAR HGB CONC 34 g/dL (32.5-36.3); MEAN CORPUSCULAR VOLUME 85.6 fL (73.0-96.2); MONOCYTES % (AUTO) 9.6 % (0.0-11.0); NEUTROPHILS # (AUTO) 8.5 K/uL (1.8-8.9); NEUTROPHILS % (AUTO) 80.7 % (38.5-71.5); PLATELET COUNT (AUTO) 269 K/uL (152-348); RED BLOOD CELL COUNT(AUTO) 3.59 MIL/uL (4.06-5.63); RED CELL DISTRIBUTION WIDTH 15.2 % (12.1-16.2); WHITE BLOOD COUNT (AUTO) 10.5 K/uL (3.6-10.2)
[2024-08-10 14:39] LABS: DIFFERENTIAL COMMENT 1
[2024-08-10 14:51] LABS: CREATININE 0.7 mg/dL (0.6-1.3); MAGNESIUM 1.8 mg/dL (1.8-2.4); PHOSPHOROUS 2.4 mg/dL (2.5-4.9); POTASSIUM 3.3 mmol/L (3.5-5.1)
[2024-08-10 14:54] LABS: CALCIUM 7.9 mg/dL (8.5-10.1)
[2024-08-10] MEDS ORDERED: NEUTRA PHOS PACKET PO ONE (16:15)
== END 2024-08-10 15:15 | DRG 871 ==
LOC: ER 13:25 → TELE3 17:08 → MEDSURG3 08-09 10:15
PROVIDERS: ADMIT Nurse Practitioner Acute Care; ATTEND Nurse Practitioner Acute Care
DX: A41.9 Sepsis, unspecified organism (principal); I21.A1 Myocardial infarction type 2; R65.21 Severe sepsis with septic shock; I50.33 Acute on chronic diastolic (congestive) heart failure; N39.0 Urinary tract infection, site not specified; N17.9 Acute kidney failure, unspecified; I69.351 Hemiplegia and hemiparesis following cerebral infarction affecting right dominant side; E87.20 Acidosis, unspecified; R17 Unspecified jaundice; Z93.6 Other artificial openings of urinary tract status; Z93.3 Colostomy status; I69.320 Aphasia following cerebral infarction; Z88.1 Allergy status to other antibiotic agents; G40.909 Epilepsy, unspecified, not intractable, without status epilepticus; E03.9 Hypothyroidism, unspecified; Z91.041 Radiographic dye allergy status; Z87.820 Personal history of traumatic brain injury; R93.7 Abnormal findings on diagnostic imaging of other parts of musculoskeletal system; Z79.890 Hormone replacement therapy; E11.9 Type 2 diabetes mellitus without complications; K21.9 Gastro-esophageal reflux disease without esophagitis; R80.9 Proteinuria, unspecified; J44.9 Chronic obstructive pulmonary disease, unspecified; I11.0 Hypertensive heart disease with heart failure; E87.6 Hypokalemia; E88.09 Other disorders of plasma-protein metabolism, not elsewhere classified; N13.9 Obstructive and reflux uropathy, unspecified; R41.89 Other symptoms and signs involving cognitive functions and awareness
CPT/HCPCS: 36415; 71045; 83605; 83735; 84100; 84443; 84484; 85025; 85730; 87040; 87077; 87086; 93307; A4606; A4663; G0378; J1650; J2185; J3490; J7040; J7120

== ENCOUNTER 2024-12-18 03:44 | Inpatient (IN) | payer MEDICARE, OTHER ==
[~2024-12-18] VITALS: Ht 172.7 cm; Wt 83.5 kg
[~2024-12-18 03:44] MED LIST changes: +ACID1TAB4 PO; +AMIN30LI2 PO; -BISA10SU61 RC; -CYAN10006 IM; +DOXY-326 PO; +LEVE100S PO; -LEVE500T9 PO; -PANT40TA49 PO; +SULF1TAB48 PO; -TEMA15CA PO
[2024-12-18 04:29] LABS: PLATELET COUNT (AUTO) 236 K/uL (152-348); RED BLOOD CELL COUNT(AUTO) 5.14 MIL/uL (4.06-5.63); RED CELL DISTRIBUTION WIDTH 17.6 % (12.1-16.2); WHITE BLOOD COUNT (AUTO) 8.3 K/uL (3.6-10.2)
[2024-12-18 04:30] LABS: ASPARTATE AMINOTRANSFERASE 11 U/L (15-37); CREATININE 0.7 mg/dL (0.6-1.3); SODIUM SERUM 142 mmol/L (136-145); TOTAL PROTEIN, SERUM 7.4 g/dL (6.4-8.2); UREA NITROGEN, BLOOD 11 mg/dL (7-18)
[2024-12-18 04:31] LABS: *BILIRUBIN,URIN 1+ (NEGATIVE); *BLOOD, URINE 2+ (NEGATIVE); *CLARITY,URINE TURBID (CLEAR); *KETONES,URINE TRACE (NEGATIVE); *PROTEIN,URINE 2+ (NEGATIVE); *UROBILINOGEN,URINE 1.0 E.U./dl (NORMAL); LEUKOCYTE ESTERASE ,URINE 3+ (NEGATIVE); NITRITE, URINE NEGATIVE (NEGATIVE); UGLUCOSE NEGATIVE (NEGATIVE)
[2024-12-18 04:33] LABS: *COLOR,URINE GREEN (YELLOW)
[2024-12-18 04:35] LABS: CALCIUM OXALATE CRYSTALS,UR RARE /HPF (NONE SEEN); SQUAMOUS EPITHELIAL CELL,UR FEW /HPF (NONE SEEN)
[2024-12-18] MEDS ORDERED: AMIN887L21 PO (04:59)
[2024-12-18] MEDS ORDERED: ASPI81TA31 PO (04:59)
[2024-12-18] MEDS ORDERED: LEVO100T PO (04:59)
[2024-12-18] MEDS ORDERED: ACID1TAB4 PO (04:59)
[2024-12-18] MEDS ORDERED: BISA10SU61 RC (04:59)
[2024-12-18] MEDS ORDERED: POLY119P3 PO (04:59)
[2024-12-18] MEDS ORDERED: CYAN-28 PO (04:59)
[2024-12-18] MEDS ORDERED: CALC-961 PO (04:59)
[2024-12-18] MEDS ORDERED: CHOL100034 PO (04:59)
[2024-12-18] MEDS ORDERED: MAGN400O6 PO (04:59)
[2024-12-18] MEDS ORDERED: NA P133E RC (04:59)
[2024-12-18] MEDS ORDERED: ACETAMINOPHEN 650 MG/20.3 ML LIQUID UDC PO PRN (05:30)
[2024-12-18] MEDS ORDERED: ONDANSETRON 4 MG/2 ML VIAL IV PRN (05:30)
[2024-12-18] MEDS ORDERED: REMEDY ESSENTIAL ZINC PASTE 113 GM TP PRN (05:30)
[2024-12-18] MEDS ORDERED: POTASSIUM CHLORIDE 20 MEQ POWDER PACKET ONE (05:33)
[2024-12-18] MEDS: POTASSIUM CHLORIDE 20 MEQ POWDER PACKET PO ONE (05:52)
[2024-12-18] MEDS ORDERED: NUT.237L70 PO (10:44)
[2024-12-18 15:06] VITALS: BP 147/78; TEMP 98.9; O2SAT 100
[2024-12-18 23:33] VITALS: BP 170/84; TEMP 97.9; O2SAT 99
[2024-12-18 23:50] VITALS: BP 145/80; TEMP 97.8; O2SAT 98
[2024-12-19 06:22] VITALS: BP 142/74; TEMP 97.7; O2SAT 97
[2024-12-19 06:33] LABS: PLATELET COUNT (AUTO) 212 K/uL (152-348); RED BLOOD CELL COUNT(AUTO) 5.14 MIL/uL (4.06-5.63); RED CELL DISTRIBUTION WIDTH 17.2 % (12.1-16.2); WHITE BLOOD COUNT (AUTO) 7.4 K/uL (3.6-10.2)
[2024-12-19 06:51] LABS: ASPARTATE AMINOTRANSFERASE 18 U/L (15-37); CREATININE 0.9 mg/dL (0.6-1.3); SODIUM SERUM 140 mmol/L (136-145); TOTAL PROTEIN, SERUM 7.4 g/dL (6.4-8.2); UREA NITROGEN, BLOOD 9 mg/dL (7-18)
[2024-12-19 12:00] VITALS: BP 155/52; TEMP 98.2; O2SAT 97
[2024-12-19] MEDS ORDERED: PROT946L PO (15:14)
[2024-12-19 16:00] VITALS: BP 172/63; TEMP 97.8; O2SAT 97
[2024-12-19] MEDS ORDERED: Medication Not On Formulary EA (Protein Supplement (Promod) 30 ML) PO SCH (17:00)
[2024-12-19] MEDS ORDERED: BISACODYL 10 MG SUPP.RECT RC PRN (17:00)
[2024-12-19] MEDS ORDERED: CLONIDINE HCL 0.1 MG TABLET PO PRN (17:00)
[2024-12-19] MEDS ORDERED: FLEET ENEMA 133 ML BOTTLE RC PRN (17:00)
[2024-12-19] MEDS ORDERED: [UNRECOGNIZED DRUG - OTHER] PO SCH (17:00)
[2024-12-19] MEDS ORDERED: MAGNESIUM HYDROXIDE 30 ML LIQUID UDC PO PRN (17:00)
[2024-12-19] MEDS: METOPROLOL TARTRATE 25 MG TABLET PO SCH (17:23)
[2024-12-19] MEDS: LISINOPRIL 10 MG TABLET PO SCH (17:23)
[2024-12-19] MEDS: ACIDOPHILUS/BULGARICUS CHEW TAB PO SCH (17:23)
[2024-12-19] MEDS: GLUCERNA SHAKE 237 ML CAN PO SCH (17:24)
[2024-12-19] MEDS: PROTEIN SUPPLEMENT (PROSTAT) 30 ML LIQUID PO SCH (17:25)
[2024-12-19] MEDS: BOOST GLUCOSE CONTROL 237 ML LIQUID (CHOCOLATE) PO SCH (17:28)
[2024-12-19 19:49] VITALS: BP 135/65; TEMP 97.8; O2SAT 95
[2024-12-19] MEDS ORDERED: MEROPENEM 1 G in IV NORMAL SALINE 100 ML IV SCH (22:00)
[2024-12-19] MEDS: OLANZAPINE 10 MG VIAL IM ONE (22:42)
[2024-12-19] MEDS: MEROPENEM 1 G in IV NORMAL SALINE 100 ML IV SCH (23:36)
[2024-12-20 04:40] VITALS: BP 140/57; TEMP 97.7; O2SAT 96
[2024-12-20] MEDS: LEVOTHYROXINE SODIUM 100 MCG TABLET PO SCH (06:31)
[2024-12-20 07:07] LABS: PLATELET COUNT (AUTO) 235 K/uL (152-348); RED BLOOD CELL COUNT(AUTO) 5.05 MIL/uL (4.06-5.63); RED CELL DISTRIBUTION WIDTH 17.2 % (12.1-16.2); WHITE BLOOD COUNT (AUTO) 8.3 K/uL (3.6-10.2)
[2024-12-20 07:13] LABS: IRON, SERUM 50 ug/dL (50-175)
[2024-12-20 07:31] LABS: CREATININE 0.7 mg/dL (0.6-1.3); SODIUM SERUM 140 mmol/L (136-145); UREA NITROGEN, BLOOD 12 mg/dL (7-18)
[2024-12-20] MEDS: MULTIVITAMINS,THERAPEUTIC TABLET PO SCH (08:42)
[2024-12-20] MEDS: CHOLECALCIFEROL 1,000 UNIT TABLET PO SCH (08:42)
[2024-12-20] MEDS: MIRALAX 17 GM POWD.PACK PO SCH (08:43)
[2024-12-20] MEDS: CYANOCOBALAMIN 1,000 MCG TABLET PO SCH (08:43)
[2024-12-20] MEDS: DOCUSATE SODIUM 100 MG CAPSULE PO SCH (08:45)
[2024-12-20] MEDS: ASPIRIN 81 MG TAB.CHEW PO SCH (08:46)
[2024-12-20] MEDS ORDERED: CYANOCOBALAMIN 500 MCG PO SCH (09:00)
[2024-12-20] MEDS ORDERED: POLYETHYLENE GLYCOL 3350 238 GM POWDER PO SCH (09:00)
[2024-12-20] MEDS ORDERED: Medication Not On Formulary EA (Multivitamins (Multivitamin) 1 EACH) PO SCH (09:00)
[2024-12-20 11:38] VITALS: BP 150/74; TEMP 97.8; O2SAT 98
[2024-12-20] MEDS: SULFAMETH/TRIMETH 800/160 MG TABLET PO SCH (13:32)
[2024-12-20] MEDS: TAMSULOSIN HCL 0.4 MG CAP.SR.24H PO SCH (13:32)
[2024-12-20 15:45] VITALS: BP 119/54; TEMP 97.8; O2SAT 99
[2024-12-20] MEDS: CYANOCOBALAMIN 1000 MCG/ML VIAL IM SCH (16:44)
[2024-12-20 21:59] VITALS: BP 100/47; TEMP 98.1; O2SAT 96
[2024-12-21 06:55] VITALS: BP 107/49; TEMP 97.7; O2SAT 94
[2024-12-21 11:15] VITALS: BP 115/49; TEMP 97.5; O2SAT 97
[2024-12-21 15:40] VITALS: BP 113/58; TEMP 97.7; O2SAT 99
[2024-12-21 19:35] VITALS: BP 133/61; TEMP 98.7; O2SAT 99
[2024-12-22 04:00] VITALS: BP 132/62; TEMP 98.6; O2SAT 100
[2024-12-22] MEDS ORDERED: Sulfameth/Trimeth 800/160 Mg PO (09:31)
[2024-12-22 12:00] VITALS: BP 114/60; TEMP 97.8; O2SAT 99
[2024-12-22 15:17] VITALS: TEMP 97
== END 2024-12-22 15:30 | DRG 871 ==
LOC: ER 03:44 → MEDSURG3 05:16
PROVIDERS: ADMIT Registered Nurse Psychiatric/Mental Health; ATTEND Internal Medicine
DX: A41.59 Other Gram-negative sepsis (principal); G92.8 Other toxic encephalopathy; N39.0 Urinary tract infection, site not specified; E44.0 Moderate protein-calorie malnutrition; N13.8 Other obstructive and reflux uropathy; I69.351 Hemiplegia and hemiparesis following cerebral infarction affecting right dominant side; N20.1 Calculus of ureter; D68.59 Other primary thrombophilia; K90.9 Intestinal malabsorption, unspecified; A41.9 Sepsis, unspecified organism; E87.6 Hypokalemia; F03.90 Unspecified dementia, unspecified severity, without behavioral disturbance, psychotic disturbance, mood disturbance, and anxiety; Z85.038 Personal history of other malignant neoplasm of large intestine; R65.20 Severe sepsis without septic shock; B96.4 Proteus (mirabilis) (morganii) as the cause of diseases classified elsewhere; E03.9 Hypothyroidism, unspecified; J44.9 Chronic obstructive pulmonary disease, unspecified; Z68.27 Body mass index [BMI] 27.0-27.9, adult; N40.3 Nodular prostate with lower urinary tract symptoms; Z93.50 Unspecified cystostomy status; I69.320 Aphasia following cerebral infarction; K43.5 Parastomal hernia without obstruction or gangrene; I65.23 Occlusion and stenosis of bilateral carotid arteries; E53.8 Deficiency of other specified B group vitamins; M51.369 Other intervertebral disc degeneration, lumbar region without mention of lumbar back pain or lower extremity pain; M51.34 Other intervertebral disc degeneration, thoracic region; M85.89 Other specified disorders of bone density and structure, multiple sites; G40.909 Epilepsy, unspecified, not intractable, without status epilepticus; G93.89 Other specified disorders of brain; F01.50 Vascular dementia, unspecified severity, without behavioral disturbance, psychotic disturbance, mood disturbance, and anxiety; E88.09 Other disorders of plasma-protein metabolism, not elsewhere classified; Z74.09 Other reduced mobility; Z79.899 Other long term (current) drug therapy; Z87.828 Personal history of other (healed) physical injury and trauma; Z93.3 Colostomy status; I11.9 Hypertensive heart disease without heart failure; Z86.39 Personal history of other endocrine, nutritional and metabolic disease
CPT/HCPCS: 36415; 70450; 71045; 82378; 83550; 83735; 84100; 84443; 85025; 87077; 87086; 93005; G0378; J1956; J2185; J2358; J3420